=== PATIENT | female | born 1960 | race Caucasian/White ===

== ENCOUNTER 2019-02-25 13:25 | Outpatient (CLI) | payer OTHER ==
--- NOTE | 2019-02-25 14:11 | RAD ---
Exam: Bilateral AP standing knees one view: HISTORY: Left knee pain FINDINGS: Very mild degenerative changes. No acute fracture or dislocation or other acute process. IMPRESSION: Very mild degenerative changes.
--- NOTE | 2019-02-25 14:24 | RAD ---
LEFT KNEE 4 VIEWS: DATE: 02/25/19 HISTORY: Left knee pain. FINDINGS/IMPRESSION: No fracture, dislocation, or bony destruction is seen. No significant osteophytosis is identified. POS: [facility]
== END 2019-02-25 13:26 | disposition home or self-care (01) ==
LOC: NAV RAD 13:25
PROVIDERS: ATTEND Family Medicine
DX: M25.562 Pain in left knee (principal); M54.30 Sciatica, unspecified side; M17.12 Unilateral primary osteoarthritis, left knee
CPT/HCPCS: 73565

== ENCOUNTER 2023-10-15 13:50 | Outpatient (CLI) | payer BC | END 2023-10-15 13:51 | disposition home or self-care (01) | LOC: NAV RAD 13:50 | PROVIDERS: ATTEND Student in an Organized Health Care Education/Training Program | DX: G56.01 Carpal tunnel syndrome, right upper limb (principal) ==